=== PATIENT | female | born 1950 | race Caucasian/White ===

== ENCOUNTER 2022-11-02 06:42 | Observation (INO) | payer MEDICARE ==
[2022-11-01 10:34] LABS: BASOPHILS # (AUTO) 0.1 (0.0-0.1); BASOPHILS % 1.1 % (0.0-1.0); EOSINOPHILS # (AUTO) 0.3 (0.0-0.4); EOSINOPHILS % 5.1 % (0.0-6.0); HEMATOCRIT 32.3 % (34.2-44.1); HEMOGLOBIN 9.5 g/dL (12.0-16.0); LYMPHOCYTES # (AUTO) 0.8 (1.0-3.2); LYMPHOCYTES % 14.2 % (18.0-39.1); MEAN CORPUSCULAR HEMOGLOBIN 27.4 pg (28-32); MEAN CORPUSCULAR HGB CONC 29.4 g/dL (31-35); MEAN CORPUSCULAR VOLUME 93.1 fL (81-99); MONOCYTES # (AUTO) 0.3 (0.2-0.8); NEUTROPHILS # (AUTO) 4.2 (2.1-6.9); NEUTROPHILS % 73.1 % (38.7-80.0); PLATELET COUNT 268 x10e3/uL (140-360); RED BLOOD COUNT 3.47 x10e6/uL (3.6-5.1); RED CELL DISTRIBUTION WIDTH 14.6 % (11.7-14.4)
[~2022-11-02] VITALS: Ht 162.6 cm; Wt 76.7 kg
[~2022-11-02 06:42] MED LIST: ACETAMINOPHEN 1000 MG/100 ML 100 ML IV ONE; ALLERGY REL5 MG/5 ML; AMLODIPINE BESYL5 MG PO; ASPIRIN81 MG PO; BENICAR20 MG PO; BROVANA15 MCG/2 M NEB; BUDESONIDE0.5 MG/2 M NEB; FLOVENT HFA17 GM; HYDROCODON-ACE1 EAC9 PO; IPRAT-ALBUT 0.5-3 ML; LACTATED RINGER'S 1,000 ML ONE; LEVOCETIRIZINE D5 MG; LEVOTHYROXINE50 MCG PO; MELOXICAM7.5 MG PO; METOPROLOL SUCC25 MG PO; MONTELUKAST SOD10 MG PO; PROTONIX20 MG PO; SERTRALINE HCL100 MG PO; ULTRAM 50MG50 MG PO; VENTOLIN HFA18 GM INH; VITAMIN D250 MCG; YUPELRI175 MCG/3
[2022-11-02] MEDS ORDERED: CLINDAMYCIN PHOS 900MG/ 50ML 50 ML IV ONE (07:07)
[2022-11-02] MEDS ORDERED: ACETAMINOPHEN 1000 MG/100 ML 100 ML IV ONE (08:36)
[2022-11-02] MEDS ORDERED: ONDANSETRON HCL INJ 2MG/ML 2ML 2 MG/ML VIAL ONE ×2 (10:07→12:46)
[2022-11-02] MEDS: FENTANYL CITRATE/PF 100MCG/2 ML INJ ONE ×8 (10:07→12:17)
[2022-11-02] MEDS ORDERED: ONDANSETRON HCL INJ 2MG/ML 2ML 2 MG/ML VIAL IV PRN ×2 (10:30→13:30)
[2022-11-02] MEDS ORDERED: HYDROCODONE/APAP 10MG-325MG TAB ONE (10:48)
[2022-11-02] MEDS ORDERED: HYDROCODONE/APAP 5MG-325MG TAB PO SCH ×2 (12:00→18:00)
[2022-11-02] MEDS ORDERED: SEVOFLURANE INHAL SOLN 250 ML PEN BTL ONE (12:46)
[2022-11-02] MEDS ORDERED: DEXAMETHASONE SOD PHOS INJ 4 MG/ML SDV ONE (12:46)
[2022-11-02] MEDS ORDERED: NEOSTIGMINE 1 MG/ML 10ML VIAL ONE (12:46)
[2022-11-02] MEDS ORDERED: LIDOCAINE HCL 2% LOCAL INJ 5 ML SDV VIAL INJ ONE (12:46)
[2022-11-02] MEDS ORDERED: ROCURONIUM BROMIDE 10 MG/ML 5ML VIAL IV ONE (12:46)
[2022-11-02] MEDS ORDERED: POVIDONE IODINE 0.05% 0.05 % ML PO ONE (12:46)
[2022-11-02] MEDS ORDERED: GLYCOPYRROLATE INJ 0.2 MG/ML VIAL ONE (12:46)
[2022-11-02] MEDS ORDERED: PROPOFOL IV EMULSION 10 MG/ML 20 ML VIAL ONE (12:46)
[2022-11-02] MEDS ORDERED: EPHEDRINE SULFATE INJ 50 MG/ML VIAL ONE (12:46)
[2022-11-02 12:54] VITALS: BP 102/56
[2022-11-02] MEDS ORDERED: FENTANYL CITRATE/PF 100MCG/2 ML INJ ONE (12:58)
[2022-11-02 13:05] VITALS: BP 133/79
[2022-11-02] MEDS ORDERED: BENZONATATE 100 MG CAP PO PRN (13:30)
[2022-11-02] MEDS ORDERED: ACETAMINOPHEN 325 MG TAB PO PRN (13:30)
[2022-11-02] MEDS ORDERED: DIPHENHYDRAMINE HCL 25 MG CAP PO PRN (13:30)
[2022-11-02] MEDS ORDERED: SIMETHICONE 80 MG CHEW PO PRN (13:30)
[2022-11-02] MEDS ORDERED: MELATONIN 5 MG TABLET PO PRN (13:30)
[2022-11-02] MEDS ORDERED: LIDOCAINE 4% PATCH TP PRN (13:30)
[2022-11-02] MEDS ORDERED: DEXTROSE 50% SYRINGE 50 ML IV PRN (13:30)
[2022-11-02] MEDS ORDERED: POTASSIUM CHLORIDE 20 MEQ TAB CR PO PRN (13:30)
[2022-11-02] MEDS ORDERED: HYDRALAZINE HCL 20 MG/ML VIAL IV PRN (13:30)
[2022-11-02] MEDS: CLINDAMYCIN 600MG / 50ML 50 ML IV SCH ×2 (14:05→21:46)
[2022-11-02] MEDS: LACTATED RINGER'S 1,000 ML INJ SCH (14:05)
[2022-11-02] MEDS: HYDROCODONE/APAP 10MG-325MG TAB PO PRN ×3 (14:08→22:17)
[2022-11-02] MEDS ORDERED: HYDROCODONE/APAP 5MG-325MG TAB PO PRN (14:15)
[2022-11-02 14:30] LABS: ANION GAP 14.4 mmol/L (8-16); CALCIUM 8.4 mg/dL (8.4-10.2); CREATININE, SERUM 0.83 mg/dL (0.57-1.11); POTASSIUM 4.4 mmol/L (3.5-5.1)
[2022-11-02] MEDS: ALBUTEROL/IPRATROPIUM 3 ML NEB NEB PRN ×2 (16:45→19:35)
[2022-11-02 17:03] VITALS: BP 105/70
[2022-11-02] MEDS ORDERED: ENOXAPARIN SOD INJ 40 MG/0.4 ML SYR SC SCH (18:00)
[2022-11-02 18:45] VITALS: BP 107/60
[2022-11-02 20:00] VITALS: BP 107/60
[2022-11-02] MEDS: KETOROLAC TROMETHAMINE 30 MG/ML VIAL IV PRN (20:16)
[2022-11-02] MEDS ORDERED: SERTRALINE HCL 100 MG TAB PO SCH (21:00)
[2022-11-03] VITALS: BP 116/53
[2022-11-03] MEDS: LACTATED RINGER'S 1,000 ML INJ SCH ×2 (00:20→13:40)
[2022-11-03] MEDS: ALBUTEROL/IPRATROPIUM 3 ML NEB NEB PRN ×4 (01:05→18:30)
[2022-11-03 04:30] VITALS: BP 136/71
[2022-11-03] MEDS: KETOROLAC TROMETHAMINE 30 MG/ML VIAL IV PRN (04:39)
[2022-11-03 05:01] LABS: BASOPHILS % 0.5 % (0.0-1.0); LYMPHOCYTES # (AUTO) 0.8 (1.0-3.2); LYMPHOCYTES % 13.2 % (18.0-39.1); MEAN CORPUSCULAR HEMOGLOBIN 27.4 pg (28-32); MEAN CORPUSCULAR HGB CONC 29.6 g/dL (31-35); MEAN CORPUSCULAR VOLUME 92.7 fL (81-99); MONOCYTES # (AUTO) 0.6 (0.2-0.8); MONOCYTES % 9.9 % (4.4-11.3); NEUTROPHILS # (AUTO) 4.4 (2.1-6.9); NEUTROPHILS % 75.9 % (38.7-80.0); PLATELET COUNT 259 x10e3/uL (140-360); RED BLOOD COUNT 2.48 x10e6/uL (3.6-5.1)
[2022-11-03 05:03] LABS: HEMOGLOBIN 6.8 g/dL (12.0-16.0)
[2022-11-03 05:16] LABS: BASOPHILS % 0.2 % (0.0-1.0); LYMPHOCYTES # (AUTO) 0.7 (1.0-3.2); LYMPHOCYTES % 12.5 % (18.0-39.1); MEAN CORPUSCULAR HEMOGLOBIN 26.8 pg (28-32); MEAN CORPUSCULAR HGB CONC 28.8 g/dL (31-35); MEAN CORPUSCULAR VOLUME 92.9 fL (81-99); MONOCYTES # (AUTO) 0.6 (0.2-0.8); NEUTROPHILS # (AUTO) 4.2 (2.1-6.9); NEUTROPHILS % 75.2 % (38.7-80.0); PLATELET COUNT 234 x10e3/uL (140-360); RED BLOOD COUNT 2.24 x10e6/uL (3.6-5.1); RED CELL DISTRIBUTION WIDTH 14.8 % (11.7-14.4)
[2022-11-03 05:22] LABS: ANION GAP 15.4 mmol/L (8-16); CALCIUM 8.5 mg/dL (8.4-10.2); CREATININE, SERUM 0.96 mg/dL (0.57-1.11); MAGNESIUM 1.8 MG/DL (1.3-2.1); PHOSPHORUS 4.5 MG/DL (2.3-4.7); POTASSIUM 4.4 mmol/L (3.5-5.1)
[2022-11-03 05:35] LABS: HEMATOCRIT 20.8 % (34.2-44.1)
[2022-11-03] MEDS: CLINDAMYCIN 600MG / 50ML 50 ML IV SCH (05:36)
[2022-11-03] MEDS ORDERED: LEVOTHYROXINE SODIUM 50 MCG TAB PO SCH (06:00)
[2022-11-03] MEDS ORDERED: SODIUM CHLORIDE 0.9% 250ML 250 ML IV ONE (06:30)
[2022-11-03] MEDS ORDERED: PANTOPRAZOLE SOD 40 MG TABEC PO SCH ×2 (07:30→09:00)
[2022-11-03] MEDS: HYDROCODONE/APAP 10MG-325MG TAB PO SCH ×3 (07:53→16:43)
[2022-11-03 08:09] VITALS: BP 112/62
[2022-11-03] MEDS ORDERED: ASPIRIN 81 MG CHEW TAB PO SCH (09:00)
[2022-11-03] MEDS ORDERED: AMLODIPINE BESYLATE 5 MG TAB PO SCH (09:00)
[2022-11-03] MEDS ORDERED: METOPROLOL SUCCINATE 25 MG TAB XL PO SCH (09:00)
[2022-11-03] MEDS ORDERED: MONTELUKAST SODIUM 10 MG TAB PO SCH (09:00)
[2022-11-03] MEDS ORDERED: OLMESARTAN 20 MG TAB PO SCH (09:00)
[2022-11-03] MEDS: DOCUSATE SODIUM 100 MG CAP PO PRN ×2 (10:06→16:44)
[2022-11-03 10:09] VITALS: BP 112/62
[2022-11-03] MEDS ORDERED: ONDANSETRON HCL 4 MG ORAL DISINTEGRATING TAB PO PRN (12:15)
[2022-11-03 16:56] VITALS: BP 111/68
[2022-11-03 17:53] LABS: HEMATOCRIT 27.4 % (34.2-44.1); HEMOGLOBIN 8.3 g/dL (12.0-16.0)
[2022-11-03] MEDS ORDERED: HYDROCODONE/APAP 10MG-325MG TAB PO PRN (18:00)
== END 2022-11-03 18:58 | disposition home or self-care (01) ==
LOC: OR 06:42 → PACU V 09:46 → MED/SURG 12:49
PROVIDERS: ADMIT Orthopaedic Surgery; ATTEND Orthopaedic Surgery
DX: S42.292A Other displaced fracture of upper end of left humerus, initial encounter for closed fracture (principal); W19.XXXA Unspecified fall, initial encounter; Z01.818 Encounter for other preprocedural examination; I10 Essential (primary) hypertension; E03.9 Hypothyroidism, unspecified; F32.A Depression, unspecified; Z88.1 Allergy status to other antibiotic agents
CPT/HCPCS: 0223U; 23470; 36415 ×3; 71046; 80048 ×2; 83735; 84100; 85014; 85018; 85025 ×2; 86850; 86900; 86920; 93005; 94640 ×3; 94799 ×2; 96361; 97116; 97162; C1776 ×2; G0378 ×2; J0131; J1100; J1650; J1885 ×2; J2001; J2405; J2704; J2710; J3010; J7121; P9016; S0164